=== PATIENT | female | born 1955 | race Caucasian/White ===

== ENCOUNTER 2022-02-12 15:17 | Outpatient (REF) | payer OTHER, MEDICARE, SELFPAY ==
--- NOTE | ~2022-02-12 | XR_ITS ---
EXAMINATION: XR HIP, LEFT CLINICAL INFORMATION: Assess OA. Pain COMPARISON: None TECHNIQUE: Two views of the left hip. FINDINGS: Bones and soft tissues are normal. No fracture. Alignment is anatomic. Hip joint space is maintained. XR/XR hip LT min 2V IMPRESSION: Unremarkable left hip.
[2022-02-12 15:45] LABS: MANUAL DIFF FLAG NO
[2022-02-12 16:49] LABS: Basophils Percent Auto 0.7 % (0-2); Eosinophils Absolute Auto 0.3 X10*3/uL (0.0-0.4); Eosinophils Percent Auto 5.5 % (0-4); Hematocrit 43.4 % (37.0-47.0); Hemoglobin 14.1 g/dl (12.0-16.0); Imm Gran Abs Auto 0.01 X10*3/uL (0.00-0.03); Imm Gran Pct Auto 0.2 % (0.0-0.4); Lymphocytes Absolute Auto 2.3 X10*3/uL (1.2-4.9); Lymphocytes Percent Auto 39.3 % (20-40); Mean Corpuscular HGB Conc 32.5 g/dl (31.0-35.0); Mean Corpuscular Hemoglobin 29.5 pg (27.0-33.0); Mean Corpuscular Volume 90.8 fL (80.0-98.0); Mean Platelet Volume 11.1 fL (9.4-12.3); Monocytes Absolute Auto 0.5 X10*3/uL (0.1-1.2); Neutrophils Absolute Auto 2.7 x10*3/uL (2.0-8.3); Neutrophils Percent Auto 46.3 % (45-73); Platelet Count 227 X10*3/uL (160-400); Red Blood Count 4.78 X10*6/uL (4.20-5.50); Red Cell Distribution Width 14.5 % (11.0-16.0); White Blood Count 5.8 X10*3/uL (4.8-10.8)
[2022-02-12 17:07] LABS: Anion Gap 15 (12-20); Blood Urea Nitrogen 13 mg/dL (9-16); Calcium 9.6 mg/dL (8.4-10.2); Carbon Dioxide 26 mmol/L (22-29); Chloride 103 mmol/L (96-108); Cholesterol 207 mg/dL; Estimated Glomerular Filt Rate > 60; Glucose Random 85 mg/dL (60-115); Potassium 4.2 mmol/L (3.3-5.1); Sodium 140 mmol/L (135-145)
== END 2022-02-12 15:18 | disposition home or self-care (01) ==
LOC: HO.XRAY 15:17
PROVIDERS: PCP Internal Medicine; Visit Provider Internal Medicine
DX: M25.552 Pain in left hip (principal); Z86.010 Personal history of colon polyps
CPT/HCPCS: 36415; 73502; 80048; 82465; 85025

== ENCOUNTER 2022-03-13 07:50 | Outpatient (REF) | payer MEDICARE, OTHER, SELFPAY ==
--- NOTE | ~2022-03-13 | MM_ITS ---
EXAMINATION: MM SCREENING DIGITAL BREAST TOMOSYNTHESIS, BILATERAL CLINICAL INFORMATION: Screening. Asymptomatic. The lifetime risk of breast cancer based on the Tyrer-Cuzick Model is 4%. COMPARISON: Mammography: 02/16/2013, 06/14/2009, 12/05/2006 TECHNIQUE: Digital breast tomosynthesis is performed in both the craniocaudal and mediolateral oblique views along with computer-aided detection (CAD). Synthesized 2D images are generated from the tomosynthesis. FINDINGS: There are scattered areas of fibroglandular density (ACR BI-RADS breast composition Category b). The left breast shows no interval mass or architectural abnormality. Neither breast shows abnormal calcifications. The bilateral axilla are unremarkable. Right MLO view has 3 mm circumscribed nodule posterior 4:00 position close to skin, likely beyond field of view on prior exams. Finding not seen on CC projection. This could be small cyst or possibly a dermal lesion. Patient will be recalled for additional imaging. MM/MM tomosynthesis screening BI IMPRESSION: Right: Circumscribed nodular asymmetry limited to MLO view, posterior 4:00 position. Left: No mammographic evidence of malignancy. ASSESSMENT: BI-RADS 0: Incomplete - Need Additional Imaging Evaluation RECOMMENDATION: 1. Assess for dermal lesion and obtain images with skin marker if applicable. Otherwise right cleavage view. 2. Targeted ultrasound if warranted after review of the additional views. 3. Radiology department staff will contact the patient for additional imaging. This patient's information was entered into a reminder system with a target due date for their next mammogram.
--- NOTE | ~2022-03-13 | MM_ITS ---
EXAMINATION: BONE DENSITOMETRY CLINICAL INDICATION: Menopause. COMPARISON: Baseline BD dated 12/05/2006. TECHNIQUE: Using a [employer] DXA System (software version: 13.1) manufactured by [employer], dual-energy x-ray absorptiometry was performed of the lumbar spine and left hip. The images are of good technical quality. Summary results are attached. FINDINGS: AP SPINE L1-L4: Current: BMD 0.957 g/cm2, Z-score 0.1, T-score -1.9, osteopenia, 10.1% decrease from baseline (<5% change is not significant). Baseline: BMD 1.065 g/cm2. LEFT FEMUR, NECK: Current: BMD 0.815 g/cm2, Z-score 0.1, T-score -1.6, osteopenia. Baseline: BMD 0.878 g/cm2. LEFT FEMUR, TOTAL: Current: BMD 0.902 g/cm2, Z-score 0.7, T-score -0.8, normal, 9.3% decrease from baseline (<5% change is not significant). Baseline: BMD 0.995 g/cm2. IDENTIFIED RISK FACTORS: Menopause, left oophorectomy. HISTORY OF FRACTURE: None listed. MEDICATIONS: None listed. MM/XR DEXA axial skeleton IMPRESSION: 1. DIAGNOSIS: Osteopenia based on the lowest T-score value of -1.9 in the lumbar spine applying World Health Organization criteria. 2. 10-YEAR FRACTURE RISK PREDICTION, FRAX: Major osteoporotic fracture (clinical spine, forearm, hip or shoulder) 8.6%. Hip fracture 1.2%. 3. Treatment Recommendations: NOF guidelines recommend consideration for treatment in postmenopausal women and men age 50 and older presenting with the following: -A hip or vertebral (clinical or morphometric) fracture. -T-score less than or equal to -2.5 at the femoral neck or spine after appropriate evaluation to exclude secondary causes. -Low bone mass at the hip or spine and a 10-year fracture probability by FRAX of greater than or equal to 3% for hip fracture or greater than or equal to 20% for major osteoporotic fracture based on the [place] adapted WHO algorithm. 4. Other Recommendations: All treatment decisions require clinical judgment and consideration of individual patient factors, including patient preferences, comorbidities, previous drug use, risk factors not captured in the FRAX model (e.g. frailty, falls, vitamin D deficiency, increased bone turnover, interval significant decline in bone density) and possible under or overestimation of fracture risk by FRAX. Additional medical evaluation for secondary cause of low bone mineral density may be appropriate. FUTURE SCAN RECOMMENDATION: People with diagnosed cases of osteoporosis or at high risk for fracture should have regular bone mineral density tests. For patients eligible for Medicare, routine testing is allowed once every 2 years. The testing frequency can be increased to one year for patients who have rapidly progressing disease, those who are receiving or discontinuing medical therapy to restore bone mass, or have additional risk factors.
== END 2022-03-13 07:51 | disposition home or self-care (01) ==
LOC: HO.MAMMO 07:50
PROVIDERS: Visit Provider Internal Medicine
DX: Z12.31 Encounter for screening mammogram for malignant neoplasm of breast (principal); Z13.820 Encounter for screening for osteoporosis; Z78.0 Asymptomatic menopausal state; M85.80 Other specified disorders of bone density and structure, unspecified site
CPT/HCPCS: 77063; 77067; 77080

== ENCOUNTER 2022-03-22 14:09 | Outpatient (REF) | payer MEDICARE, OTHER, SELFPAY ==
--- NOTE | ~2022-03-22 | MM_ITS ---
EXAMINATION: MM DIAGNOSTIC DIGITAL MAMMOGRAPHY, RIGHT CLINICAL INFORMATION: Small circumscribed nodule posterior 4:00 right breast on screening MLO view. COMPARISON: Mammography: 03/13/2022, 02/16/2013. TECHNIQUE: Digital mammography is performed in the following views: Right CC and right MLO views with dermal marker. FINDINGS: There are scattered areas of fibroglandular density (ACR BI-RADS breast composition Category b). The finding on recent screening mammography corresponds to a small skin tag marked with the skin marker on current images. The remainder of the breast is unremarkable. Results are discussed with the patient at time of visit. MM/MM added views RT IMPRESSION: Incidental skin tag posterior medial right breast corresponding to finding on recent screening mammography. ASSESSMENT: BI-RADS 2: Benign RECOMMENDATION: Routine annual mammography screening. This patient's information was entered into a reminder system with a target due date for their next mammogram.
== END 2022-03-22 14:10 | disposition home or self-care (01) ==
LOC: HO.MAMMO 14:09
PROVIDERS: Visit Provider Internal Medicine
DX: N63.14 Unspecified lump in the right breast, lower inner quadrant (principal)
CPT/HCPCS: 77065

== ENCOUNTER 2022-11-21 06:17 | Day surgery (SDC) | payer MEDICARE, OTHER, SELFPAY ==
[2022-11-21 06:25] VITALS: BMI 21.4
[2022-11-21 06:38] VITALS: BP 139/77; PULSE 87; RESP 16; TEMP 36.7; O2SAT 98
[2022-11-21] MEDS: Lactated Ringers 1,000 ML 100 ML IVCONT (06:49)
--- NOTE | 2022-11-21 07:23 | HO.ANESPROP2 ---
[facility] Past Medical History Medical History (Updated 11/20/22 @ 10:21 by Megan Nagy RN) HX: benign breast biopsy Hyperplastic polyp of intestine Tubular adenoma Family History Family history of problems with anesthesia: No Surgical History Surgical History (Updated 11/21/22 @ 06:24 by Justyna Jackson RN) H/O section H/O colonoscopy History of biopsy History of removal of ovarian cyst History of Problems with Anesthesia: No Social History Social History Patient Tobacco Use Status: Former Tobacco user Use of substances other than those prescribed or required for medical reasons: No Are you DNR?: No Advance Directives: No Advance Directives Information Provided: Yes Meds Allergies Allergy/AdvReac Type Severity Reaction Status Date / Time No Known Allergies Allergy Verified 11/21/22 06:24 Active Medications: Current Medications Lactated Ringer's (Lr) 1,000 mls @ 100 mls/hr IVCONT .Q10H [facility] Last Admin: 11/21/22 06:49 Dose: 100 mls/hr Sodium Biphosphate/Sodium Phosphate (Sodium Phosphate,Leon-Dibasic 133 Ml Enema) 133 ml MS ONCE PRN PRN Reason: Poor Colonoscopy Prep Results Home Medications Medication Instructions Recorded Confirmed Last Taken Type No Known Home Meds 11/20/22 11/20/22 Unknown History Exam Exam Date and Time: November 21, 2022 0723 Height,Weight and Vital Signs: Height 5 ft 4 in Weight 56.699 kg Last Vital Signs Temp 98.0 F 11/21/22 06:38 Pulse 87 11/21/22 06:38 Resp 16 11/21/22 06:38 BP 139/77 11/21/22 06:38 Pulse Ox 98 11/21/22 06:38 O2 Del Method 11/21/22 06:38 Airway Mallampati Class: II TM Dist: >3cm (Large bilateral torsi upper palatte) Neck ROM: Full Heart: RR Lungs: CTA Assessment and Plan Assessment Anesthesia Assessment: Anesthesia Plan Discussed and Chart Reviewed Final Anesthetic Review Family History of Problems with Anesthesia: No History of Problems with Anesthesia: No NPO: No ASA Class: I Final Preanesthetic Review: No Changes in Pt Med Stat, Meds/Allgs Chart Reviewed, Consent Obtained/Reviewed and Anes Risks/Benef Reviewed Patient Risk: Low Procedure Risk: Low Anesthetic Plan Anesthetic Plan: MAC: Disposition: Standard PACU
[2022-11-21 08:26] VITALS: BP 124/65; PULSE 85; RESP 16; TEMP 36.5; O2SAT 99
--- NOTE | 2022-11-21 08:33 | PM.OP ---
Brief Operative Note Date of Service: 11/21/22 Pre-op diagnosis: Screening Post-op diagnosis: other (Polyp around and in appendiceal orifice) Procedure: Colonoscopy to the cecum and TI with biopsies Surgeon: Cole Larkin Anesthesia: MAC Was an [employer] Salesperson used for this Procedure?: No Estimated blood loss (mL): 2.0 Pathology: other (A. Biopsies from polypoid lesion around and in appendiceal orifice) Condition: stable Disposition: PACU
[2022-11-21 08:41] VITALS: BP 132/76; PULSE 69; RESP 16; O2SAT 99
--- NOTE | 2022-11-21 08:50 | OP_ITS ---
SURGEON: Cole Larkin MD INDICATIONS: The patient presents for evaluation of colorectal cancer screening and personal history of a tubular adenoma of the colon. Full consent was obtained from her for this, including risks of bleeding and perforation. PREOPERATIVE DIAGNOSIS: POSTOPERATIVE DIAGNOSIS: Colorectal cancer screening and personal history of a tubular adenoma of the colon, polypoid lesion around the appendiceal orifice, diverticulosis, and small internal hemorrhoids. PROCEDURE PERFORMED: Colonoscopy to the cecum and terminal ileum with biopsies. ESTIMATED BLOOD LOSS: COMPLICATIONS: ANESTHESIA: Medication used, monitored anesthesia care. ASSISTANTS: SPECIMENS: PREOPERATIVE DIAGNOSES: Colorectal cancer screening and personal history of tubular adenoma of the colon. DESCRIPTION OF PROCEDURE: The patient was placed in the left lateral decubitus position. The digital rectal exam revealed no abnormalities. The Olympus video pediatric colonoscope was entered into the rectum and advanced easily to the cecum. Once in the cecum, I did identify cecal pouch with appendiceal orifice. The appendiceal orifice was notable for what appeared to be an almost circumferential area of raised adenomatous-appearing tissue around the orifice with some similar-type tissue extending into the orifice itself. The remainder of the cecum appeared normal. The ileocecal valve appeared normal. The terminal ileum was cannulated and appeared normal. The scope was withdrawn back in the colon. The appendiceal orifice was carefully inspected. Portions of the raised adenomatous-appearing polyoid tissue could have been removed by snare polypectomy. However, given the appearance of this tissue around the orifice and what appears to be some tissue extending into the orifice, I opted not to try to remove the lesion and simply obtain multiple biopsies from it. I felt trying to remove the lesion would not be complete and could be an increased risk for perforation in this area. The scope was then slowly withdrawn assessing all mucosal surfaces carefully. Preparation was excellent. I did not visualize any other polyps, colitis, or angiodysplasia. There was a mild amount of sigmoid diverticulosis. In the rectum, the scope was retroflexed visualizing small internal hemorrhoids, but no other pathology. The rectal mucosa appeared normal. The scope was straightened and withdrawn from the patient. She tolerated the procedure well and was returned to the recovery area in stable condition. IMPRESSION: 1. Polypoid-appearing lesion around and in the appendiceal orifice, status post biopsy. 2. Mild diverticulosis. 3. Small internal hemorrhoids. PLAN: The results of the biopsies will be checked. I suspect this will return as adenomatous or serrated-type tissue and she will require surgical consultation to have it removed. She was advised not to use any aspirin and NSAIDs for at least 1 week. I would recommend a repeat colonoscopy in 2-3 years for followup. This has all been discussed with the patient and her today. MD RORY Pham/RADHA / [id number] MTDMartha
[2022-11-21 08:55] VITALS: BP 131/74; PULSE 70; RESP 16; TEMP 36.6; O2SAT 99
== END 2022-11-21 09:17 | disposition home or self-care (01) ==
PROVIDERS: PCP Internal Medicine; Visit Provider Internal Medicine
PROC: 0DJD8ZZ Inspection of Lower Intestinal Tract, Via Natural or Artificial Opening Endoscopic (ICD-10-PCS; CPT 45378; principal; 2022-11-21 07:30)
DX: Z12.11 Encounter for screening for malignant neoplasm of colon (principal); Z86.010 Personal history of colon polyps; D12.1 Benign neoplasm of appendix; K57.30 Diverticulosis of large intestine without perforation or abscess without bleeding; K64.8 Other hemorrhoids; Z87.891 Personal history of nicotine dependence
CPT/HCPCS: 45380; 88305; J2370

== ENCOUNTER → 2022-12-18 10:16 | Outpatient (BNVA) | payer MEDICARE, OTHER, SELFPAY | PROVIDERS: PCP Internal Medicine; Referring Provider Internal Medicine; Visit Provider Surgery | DX: D12.6 Benign neoplasm of colon, unspecified (principal); Z98.890 Other specified postprocedural states | CPT/HCPCS: 99202 ==

== ENCOUNTER 2023-01-09 07:05 | Inpatient (IN) | payer MEDICARE, OTHER, SELFPAY ==
[2022-12-25 14:42] VITALS: BMI 20.9
--- NOTE | 2023-01-03 | ECG_ITS ---
Test Reason : pre-op Blood Pressure : / mmHG Vent. Rate : 074 BPM Atrial Rate : 074 BPM P-R Int : 130 ms QRS Dur : 088 ms QT Int : 370 ms P-R-T Axes : 030 004 016 degrees QTc Int : 410 ms Normal sinus rhythm Normal ECG No previous ECGs available Referred By: Aguilar Mullins Electronically Signed By:DARYN CHEEK MD
[2023-01-03 14:05] LABS: MANUAL DIFF FLAG NO
[2023-01-03 14:39] LABS: Basophils Absolute Auto 0.1 X10*3/uL (0.0-0.2); Basophils Percent Auto 0.9 % (0-2); Eosinophils Absolute Auto 0.3 X10*3/uL (0.0-0.4); Eosinophils Percent Auto 5.5 % (0-4); Hemoglobin 13.6 g/dl (12.0-16.0); Imm Gran Abs Auto 0.01 X10*3/uL (0.00-0.03); Imm Gran Pct Auto 0.2 % (0.0-0.4); Lymphocytes Absolute Auto 1.7 X10*3/uL (1.2-4.9); Lymphocytes Percent Auto 29.2 % (20-40); Mean Corpuscular HGB Conc 33.2 g/dl (31.0-35.0); Mean Corpuscular Hemoglobin 30.4 pg (27.0-33.0); Mean Corpuscular Volume 91.7 fL (80.0-98.0); Mean Platelet Volume 10.7 fL (9.4-12.3); Monocytes Absolute Auto 0.6 X10*3/uL (0.1-1.2); Monocytes Percent Auto 9.4 % (2-11); Neutrophils Absolute Auto 3.2 x10*3/uL (2.0-8.3); Neutrophils Percent Auto 54.8 % (45-73); Platelet Count 233 X10*3/uL (160-400); Red Blood Count 4.47 X10*6/uL (4.20-5.50); Red Cell Distribution Width 12.8 % (11.0-16.0); White Blood Count 5.8 X10*3/uL (4.8-10.8)
[2023-01-03 15:03] LABS: Anion Gap 15 (12-20); Blood Urea Nitrogen 19 mg/dL (9-16); Calcium 9.2 mg/dL (8.4-10.2); Carbon Dioxide 26 mmol/L (22-29); Chloride 104 mmol/L (96-108); Creatinine Clr Calc Pharmacy 58.9; Estimated Glomerular Filt Rate > 60; Glucose Random 90 mg/dL (60-115); Potassium 3.9 mmol/L (3.3-5.1); Sodium 141 mmol/L (135-145)
[2023-01-03 15:05] LABS: Alanine Aminotransferase 11 U/L (0-31); Albumin Level 4.4 g/dL (3.5-5.0); Alkaline Phosphatase 66 U/L (39-117); Anion Gap 14 (12-20); Aspartate Amino Transferase 18 U/L (5-31); Bilirubin Total 0.7 mg/dL (0.0-1.0); Blood Urea Nitrogen 19 mg/dL (9-16); Calcium 9.2 mg/dL (8.4-10.2); Carbon Dioxide 27 mmol/L (22-29); Chloride 104 mmol/L (96-108); Creatinine Clr Calc Pharmacy 58.9; Estimated Glomerular Filt Rate > 60; Glucose Random 90 mg/dL (60-115); Potassium 3.9 mmol/L (3.3-5.1); Sodium 141 mmol/L (135-145)
[2023-01-09] VITALS (17 sets, daily range): BP systolic 115–159; BP diastolic 56–78; PULSE 70–95; RESP 12–20; TEMP 36.2–37.1; O2SAT 97–100
[2023-01-09] MEDS: Lactated Ringers 1,000 ML 100 ML IVCONT (08:11)
[2023-01-09 08:12] LABS: Influenza A PCR NEGATIVE (Negative); Influenza B PCR NEGATIVE (Negative); Resp Syncy Virus RNA Qual PCR NEGATIVE (Negative); SARS COV2 PCR INHOUSE NEGATIVE (Negative)
--- NOTE | 2023-01-09 08:32 | P.HPSUR_ITS ---
Pre-Procedural Eval Section A Date of Service: 01/09/23 Changes since office visit: Yes Patient answered all questions; No Cold of Flu in the past 2 weeks, No New Medical Problems and No Changes in Medication The History & Physical has been completed within 30 days and I have reviewed it.: No Section B Chief Complaint: Sessile Serrated Polyp Appendix Details of Present Illness: Patient denies any current ongoing abdominal s ymptoms feels well. She tolerated the prep antibiotics well. Relevant Family History (Specify if Yes): No Relevant Social History: None Present Medications: see Short Stay Collaborative assessment Medical History: No relevant PMH History of Previous Operations: Relevant previous surgery/procedure and date(s) ( Caesarean section) Allergies: Allergies Allergy/AdvReac Type Severity Reaction Status Date / Time No Known Allergies Allergy Verified 12/25/22 14:41 Review of Systems Sugical H&P ROS: Negative: Constitution, Cardiovascular, Respiratory, Neurolo gical, Psychiatric, Hem-Onc, Allergic/Immunologic, Gastrointestinal, Genitourinary, Musculoskeletal, Integumentary, Endocrine and Eyes/Ears/Nose/Throat Exam Surgical H&P Exam: Normal: HEENT, Normal: Heart, Normal: Lungs, Normal: Extremities, Normal: Abdomen, Normal: Skin and Normal: Neurological Plan Diagnosis/Plan: Unchanged I have reviewed the history and physical and performed a pertinent physical examination on my patient. No changes have occurred unless specified. Time Spent With Patient Time: Total time managing care of this patient today ___10_ minutes.
--- NOTE | 2023-01-09 10:16 | P.CONAN_ITS ---
[facility] Active Problems Active Problems: All Active Problems (Updated 12/25/22 @ 14:41 by Deanna Magallanes, RN) Sessile serrated polyp of colon (Acute) Past Medical History Medical History (Updated 12/25/22 @ 14:41 by Deanna Magallanes RN) HX: benign breast biopsy Hyperplastic polyp of intestine Low back pain Personal history of COVID-19 Tubular adenoma Family History Family History Maternal Grandmother Breast cancer Family history of problems with anesthesia: No Surgical History Surgical History (Updated 12/25/22 @ 14:59 by Deanna Magallanes RN) H/O section H/O colonoscopy History of biopsy History of removal of ovarian cyst History of Problems with Anesthesia: No Social History Social History Are you a primary rn managed care to a significant other at home: No Do you presently have visiting nurse or other home services: No Patient Tobacco Use Status: Former Tobacco user Quit Date: 1974 Have you been hit, kicked, punched, or otherwise hurt by someone within the past year? If so, by whom?: No Are you DNR?: No Advance Directives: No Advance Directives Information Provided: Yes Advance Directives on File: No Recently lost weight without trying: No Nutrition Risks: No Nutritional Risk Meds Allergies Allergy/AdvReac Type Severity Reaction Status Date / Time No Known Allergies Allergy Verified 12/25/22 14:41 Active Medications: Current Medications Lactated Ringer's (Lr) 1,000 mls @ 100 mls/hr IVCONT .Q10H [facility] Last Admin: 01/09/23 08:11 Dose: 100 mls/hr Pharmacy Consult (Consult Rx Perform Med Rec) 1 each MISCELLANE ONCE PRN PRN Reason: Consult order Exam Exam Date and Time: January 09, 2023 1016 Height,Weight and Vital Signs: Height 5 ft 4.5 in Weight 56.245 kg Last Vital Signs Temp 97.1 F 01/09/23 07:17 Pulse 95 01/09/23 07:17 Resp 18 01/09/23 07:17 BP 115/66 01/09/23 07:17 Pulse Ox 100 01/09/23 07:17 O2 Del Method 01/09/23 07:17 Pertinent Lab Results Pertinent Lab Results: Laboratory Tests 01/03/23 01/03/23 01/03/23 13:59 14:03 14:03 WBC 5.8 RBC 4.47 Hgb 13.6 Hct 41.0 MCV 91.7 MCH 30.4 MCHC 33.2 RDW 12.8 Plt Count 233 MPV 10.7 Immature Gran % (Auto) 0.2 Neut % (Auto) 54.8 Lymph % (Auto) 29.2 Hitchcock % (Auto) 9.4 Eos % (Auto) 5.5 H Baso % (Auto) 0.9 Lymph # (Auto) 1.7 Hitchcock # (Auto) 0.6 Eos # (Auto) 0.3 Baso # (Auto) 0.1 Abs Immat Gran (auto) 0.01 Absolute Neuts (auto) 3.2 Absolute Nucleated RBC 0.000 Nucleated RBC % (auto) 0.0 Sodium 141 Potassium 3.9 Chloride 104 Carbon Dioxide 26 Anion Gap 15 BUN 19 H Creatinine 0.80 Estim Creat Clear Calc 58.9 Estimated GFR > 60 Random Glucose 90 Calcium 9.2 Total Bilirubin AST ALT Alkaline Phosphatase Total Protein Albumin Influenza Type A (PCR) Influenza Type B (PCR) RSV RNA Qual (PCR) SARS-CoV-2 RNA (RT-PCR) Blood Type B Positive Antibody Screen NEGATIVE 01/03/23 01/09/23 14:03 07:12 WBC RBC Hgb Hct MCV MCH MCHC RDW Plt Count MPV Immature Gran % (Auto) Neut % (Auto) Lymph % (Auto) Hitchcock % (Auto) Eos % (Auto) Baso % (Auto) Lymph # (Auto) Hitchcock # (Auto) Eos # (Auto) Baso # (Auto) Abs Immat Gran (auto) Absolute Neuts (auto) Absolute Nucleated RBC Nucleated RBC % (auto) Sodium 141 Potassium 3.9 Chloride 104 Carbon Dioxide 27 Anion Gap 14 BUN 19 H Creatinine 0.80 Estim Creat Clear Calc 58.9 Estimated GFR > 60 Random Glucose 90 Calcium 9.2 Total Bilirubin 0.7 AST 18 ALT 11 Alkaline Phosphatase 66 Total Protein 7.0 Albumin 4.4 Influenza Type A (PCR) NEGATIVE Influenza Type B (PCR) NEGATIVE RSV RNA Qual (PCR) NEGATIVE SARS-CoV-2 RNA (RT-PCR) NEGATIVE Blood Type Antibody Screen Airway Mallampati Class: I TM Dist: >3cm Neck ROM: Full Heart: rr Lungs: cta Assessment and Plan Assessment Anesthesia Assessment: Anesthesia Plan Discussed and Chart Reviewed Final Anesthetic Review Family History of Problems with Anesthesia: No History of Problems with Anesthesia: No NPO: Yes ASA Class: II Final Preanesthetic Review: No Changes in Pt Med Stat, Meds/Allgs Chart Reviewed, Consent Obtained/Reviewed and Anes Risks/Benef Reviewed Patient Risk: Low Procedure Risk: Intermediate Anesthetic Plan Anesthetic Plan: GA Disposition: Inp. Admit - Standard Bed
--- NOTE | 2023-01-09 10:42 | PHA.MEDREC ---
Pharmacy Consult ? Medication Reconciliation Pharmacy has completed the medication reconciliation. Pharmacy reviewed med rec.
--- NOTE | 2023-01-09 11:27 | P.OP_ITS ---
Operative Note Operative Note Date of Service: 01/09/23 Narrative: Preoperative diagnosis: sessile serrated polyp of appendix orifice Postoperative diagnosis: same Procedure: laparoscopic right hemicolectomy Surgeon: Bryan Nails MD Urgent Care Physician Assistant: Danielle Goodrich PA-C Anesthesia: general endotracheal Indications for procedure: 67-year-old female patient presenting with a sessile serrated polyp identified on routine colonoscopy at the orifice of the appendix. Lesion was incompletely removed and resection recommended. Patient is previously healthy with no GI symptoms. Operative findings: Normal appearing terminal ileum, appendix, and colon. Liver with normal texture and no evidence of palpable tumor. Peritoneal surfaces were smooth without tumor. Specimen: Right colon Estimated blood loss: 10 mL Complications: none Procedure details: patient was brought to the OR placed in a supine position with both arms to the side. After administering general anesthesia the patient's abdomen was prepped with ChloraPrep and draped in a sterile fashion. A surgical time-out was called the consent confirmed. Patient received preoperative antibiotics and Venodyne boots were in place. A Peñaloza catheter was placed and orogastric tube placed. A incision was then made just above the umbilicus. A Veress needle was inserted while elevating the abdominal cavity with towel clips. After a positive drop test the abdomen was insufflated to a pressure of 15 mmHg. A 5 mm trocar was then placed under direct vision. A 5 mm camera and, 30 degree was then inserted in the abdomen explored. A 2nd 5 mm trocar was then placed in the lower midline and a 12 mm trocar placed in the upper abdomen in the midline. A 2nd 12 mm trocar was placed in the right lower quadrant. Patient was then rotated to the left proximally 15 degrees. The terminal ileum and appendix were identified in the right quadrant. The mesoappendix was grasped and the appendix and cecum rotated medially. Peritoneal attachments to the lateral sidewall were then taken down using the LigaSure dissector. The terminal ileum was also mobilized from its attachments in the pelvis. Right colon was mobilized along the white line of Toldt. Approximately 15 cm proximal to the terminal ileum an area of mesentery was taken down using LigaSure on the ileum. An Endo-FLORINA with a purple reload was then used to divide the ileum. LigaSure was then used to divide mesentery below the terminal ileum heading towards the cecum. Ileal colic pedicle was then identified. This was dissected using the LigaSure and the vessel ligated using a vascular Stapler. Good hemostasis was identified following stapler placement. mesentery was further divided using the LigaSure up to the proximal distal right colon proximal transverse colon. At this point a small incision was made in a periumbilical location measuring approximately 6 cm. This was carried out through subcutaneous tissue and And linea alba. The peritoneum was then entered. Terminal ileum and cecum were then brought up through the incisio n easily. An area of distal resection was then identified in the distal right colon. Mesentery was divided using the LigaSure. A FLORINA reload was then used to divide the colon at this location. The specimen was passed off the table and sent to pathology for further examination. Colon and distal small bowel were then approximated using interrupted 3-0 Surgilon sutures. A functional end-to-end anastomosis was then performed by creating a enterotomy in the small bowel and colon and firing a FLORINA 60 stapler in a [id number] fashion. A wide anastomosis was performed. Enterotomies were then closed using a TA stapler. This staple line was then reinforced using interrupted 3-0 Surgilon sutures in Lembert fashion. The crotch of the incision was also closed using a 3-0 Surgilon suture. The mesenteric defect was then reapproximated using interrupted 3-0 Surgilon sutures. The anastomosis was returned to the abdominal cavity. The camera was then used to re-explore the abdomen. No bleeding could be identified and the bowel was seen to lie and relaxed fashion. The pneumoperitoneum was then evacuated and all trocars removed. The abdomen was then irrigated and suctioned dry. Irrisept was used in irrigation. This was followed by a L of saline solution. The midline incision was closed using a 0 Maxon suture. All 12 mm incisions were closed using [id number] Polysorb suture in fascia. Skin was closed in all incisions using a subcuticular 4-0 Polysorb suture. Steri-Strips, 2 x 2 gauze and Tegaderm were then applied. The patient tolerated the procedure well. A tap block was performed anesthesia following the procedure for postop pain relief. Sponge, instrument, needle counts reported as correct. The patient was transferred to PACU in stable condition. Colon Resection Tumor location: Right colon Extent of lymphovascular resection Right colon (cecum and ascending colon): Terminal ileum, cecum, right colon General Surg. - Synoptic Notes Colon Resection Tumor location: Right colon Extent of Lymphovascular Resection: Right colon (cecum and ascending colon): Terminal ileum, cecum, right colon
[2023-01-09] MEDS: HYDROmorphone HCl 0.5 MG/0.5 ML SYRINGE 0.25 MG IVPUSH ×3 (12:15→14:34)
[2023-01-09] MEDS: Dextrose 5 % and Lactated Ring 1,000 ML 100 ML IVCONT ×2 (12:44→21:01)
[2023-01-09] MEDS: Acetaminophen 1,000 MG/100 ML PIGGYBACK 400 MG IV ×2 (12:45→20:54)
[2023-01-09] MEDS: Heparin Sodium,Porcine 5,000 UNIT/ML VIAL 5000 UNIT SUBCUT (15:57)
[2023-01-09] MEDS: HYDROmorphone HCl 0.5 MG/0.5 ML SYRINGE IVPUSH ×2 (17:42→22:52)
[2023-01-10] MEDS: Acetaminophen 1,000 MG/100 ML PIGGYBACK 400 MG IV ×3 (01:55→13:06)
[2023-01-10 03:55] VITALS: BP 121/58; PULSE 77; RESP 18; TEMP 36.4; O2SAT 98
[2023-01-10] MEDS: Heparin Sodium,Porcine 5,000 UNIT/ML VIAL 5000 UNIT SUBCUT ×2 (04:19→18:00)
[2023-01-10 06:28] LABS: MANUAL DIFF FLAG NO
[2023-01-10 06:34] LABS: Basophils Percent Auto 0.3 % (0-2); Eosinophils Percent Auto 0.2 % (0-4); Hematocrit 37.3 % (37.0-47.0); Hemoglobin 12.8 g/dl (12.0-16.0); Imm Gran Abs Auto 0.04 X10*3/uL (0.00-0.03); Imm Gran Pct Auto 0.4 % (0.0-0.4); Lymphocytes Absolute Auto 1.5 X10*3/uL (1.2-4.9); Lymphocytes Percent Auto 15.6 % (20-40); Mean Corpuscular HGB Conc 34.3 g/dl (31.0-35.0); Mean Corpuscular Volume 93.3 fL (80.0-98.0); Mean Platelet Volume 11.2 fL (9.4-12.3); Monocytes Absolute Auto 0.6 X10*3/uL (0.1-1.2); Monocytes Percent Auto 5.9 % (2-11); Neutrophils Absolute Auto 7.6 x10*3/uL (2.0-8.3); Neutrophils Percent Auto 77.6 % (45-73); Platelet Count 192 X10*3/uL (160-400); Red Cell Distribution Width 12.6 % (11.0-16.0); White Blood Count 9.8 X10*3/uL (4.8-10.8)
[2023-01-10] MEDS: Dextrose 5 % and Lactated Ring 1,000 ML 100 ML IVCONT ×2 (07:08→18:00)
[2023-01-10 07:53] VITALS: BP 138/67; PULSE 78; RESP 18; TEMP 36.7; O2SAT 99
--- NOTE | 2023-01-10 07:54 | PM.PNGS ---
Subjective Subjective Date of Service: 01/10/23 Interval history: Patient complains of incisional pain, has not been out of bed and is not doing incentive spirometry as requested. She is currently receiving IV Tylenol which does seem to help. Physical Exam Vital Signs: Vital Signs: Last Vital Signs Temp 98.0 F 01/10/23 07:53 Pulse 78 01/10/23 07:53 Resp 18 01/10/23 07:53 BP 138/67 01/10/23 07:53 Pulse Ox 99 01/10/23 07:53 O2 Del Method 01/10/23 07:53 O2 Flow Rate 2 01/10/23 07:53 BMI result Body Mass Index 20.9 Const: General: healthy appearing and no acute distress Nutritional Appearance: well nourished Orientation/consciousness: patient oriented x3 Limitations: no limitations Resp: Effort & Inspection: normal respiratory effort, no audible wheezes and no cough GI: Other: Trocar incisions are clean, dry, and intact without redness or discharge. No abdominal distention. Skin: Other: Warm, dry, no rash Neuro: General: patient oriented x3 Extrem: Other: No peripheral edema Objective Data Active Medications Heparin Sodium (Porcine) (Heparin Sodium,Porcine 5,000 Unit/Ml Vial) 5,000 unit SUBCUT Q12H [facility] Last Admin: 01/10/23 04:19 Dose: 5,000 unit Documented By: YAO Hydromorphone HCl (Hydromorphone Hcl 0.5 Mg/0.5 Ml Syringe) 0.5 mg IVPUSH Q3H PRN; Protocol PRN Reason: Pain, Severe (Pain Scale 7-10) Last Admin: 01/09/23 22:52 Dose: 0.5 mg Documented By: BRAD Dextrose/Lactated Ringer's (D5lr) 1,000 mls @ 100 mls/hr IVCONT .Q10H [facility] Last Admin: 01/10/23 07:08 Dose: 100 mls/hr Documented By: YAO Acetaminophen (Ofirmev) 1,000 mg in 100 mls @ 400 mls/hr IV Q6H [facility] Stop: 01/10/23 13:14 Last Admin: 01/10/23 07:45 Dose: 400 mls/hr Documented By: MICHAEL Ondansetron HCl (Ondansetron Hcl 4 Mg/2 Ml Vial) 4 mg IVPUSH QID PRN PRN Reason: Nausea Pharmacy Consult (Consult Rx Perform Med Rec) 1 each MISCELLANE ONCE PRN PRN Reason: Consult order Sodium Chloride (0.9 % Sodium Chloride Flush 3 Ml Syringe) 3 ml IVFLUSH QSHIFT [facility] Last Admin: 01/10/23 07:46 Dose: Not Given Documented By: MICHAEL Non-Admin Reason: IV Running Zolpidem Tartrate (Zolpidem Tartrate 5 Mg Tablet) 5 mg PO BEDTIME PRN PRN Reason: Insomnia Labs 01/10/23 05:56 01/03/23 14:03 Labs: Laboratory Results - last 24 hr 01/09/23 01/10/23 07:12 05:56 MCV 93.3 MCH 32.0 MCHC 34.3 RDW 12.6 Plt Count 192 MPV 11.2 Immature Gran % (Auto) 0.4 Neut % (Auto) 77.6 H Lymph % (Auto) 15.6 L [place] % (Auto) 5.9 Eos % (Auto) 0.2 Baso % (Auto) 0.3 Lymph # (Auto) 1.5 [place] # (Auto) 0.6 Eos # (Auto) 0.0 Baso # (Auto) 0.0 Abs Immat Gran (auto) 0.04 H Absolute Neuts (auto) 7.6 Absolute Nucleated RBC 0.000 Nucleated RBC % (auto) 0.0 Influenza Type A (PCR) NEGATIVE Influenza Type B (PCR) NEGATIVE RSV RNA Qual (PCR) NEGATIVE SARS-CoV-2 RNA (RT-PCR) NEGATIVE Procedures Date of Service Date of Service: 01/10/23 Progress Note: A&P Assessment and plan (1) Sessile serrated polyp of colon: Status: Acute Plan Pod 1 following laparoscopic right colectomy for sessile serrated polyp of the cecum/appendix. Patient is hemodynamically stable with stable blood count. Patient encouraged to ambulate today, incentive spirometry Q 1 hours. Peñ[place] catheter will be removed. Will continue with clear liquid diet. Possible advancing later today if tolerated. Time Spent With Patient Time: Total time managing care of this patient today ____ minutes. Quality Stroke Does the patient have a stroke diagnosis?: No VTE Prior VTE?: No VTE Risk Level:: Surgical - moderate VTE Device Contraindication: N/A - Device Ordered VTE Drug Contraindication: N/A - Med Ordered
[2023-01-10] MEDS: HYDROmorphone HCl 0.5 MG/0.5 ML SYRINGE IVPUSH ×2 (10:14→17:59)
[2023-01-10] MEDS: ondansetron HCL 4 MG/2 ML VIAL IVPUSH (13:13)
--- NOTE | 2023-01-10 15:26 | HO.POSTANES ---
Post Anesthesia Evaluation Post Anesthesia Evaluation Vital Signs: Vital Signs Temp Pulse Resp BP Pulse Ox O2 Del Method O2 Flow Rate 01/10/23 07:53 98.0 F 78 18 138/67 99 Nasal Cannula 2 01/10/23 03:55 97.5 F 77 18 121/58 L 98 Nasal Cannula 2 Anesthesia: General Endotracheal-GETA Mental Status: Awake Pain Control: Satisfactory (incisional pain) Nausea/Vomiting: Mild Hydration: Adequate Anesthesia-Related Issues: No Anes. Related Issues
[2023-01-10 16:00] VITALS: BP 157/74; PULSE 87; RESP 18; TEMP 36.9; O2SAT 98
--- NOTE | 2023-01-10 16:17 | MHC.CM.PN ---
CM MET WITH PT AND AT BEDSIDE PT LIVES WITH HER , WORKS AND DRIVES PT HAS NO SERVICES AND NO DME PT COMPLETED A HCP TODAY NAMING HER HER AGENT SHE IS COVID VAX WITH [facility] PCP: REED RIVERA IMM DELIVERED DCP: HOME NO SERVICES TO TRANSPORT
[2023-01-10] MEDS: 0.9 % Sodium Chloride Flush 3 ML SYRINGE IVFLUSH (17:59)
[2023-01-10 20:00] VITALS: BP 132/64; PULSE 70; RESP 18; TEMP 36.9; O2SAT 96
[2023-01-11] MEDS: HYDROmorphone HCl 0.5 MG/0.5 ML SYRINGE IVPUSH ×4 (01:48→22:50)
[2023-01-11 04:00] VITALS: BP 133/65; PULSE 90; RESP 16; TEMP 36.2; O2SAT 94
[2023-01-11] MEDS: Dextrose 5 % and Lactated Ring 1,000 ML 100 ML IVCONT (04:11)
[2023-01-11] MEDS: Heparin Sodium,Porcine 5,000 UNIT/ML VIAL 5000 UNIT SUBCUT ×2 (04:16→15:22)
[2023-01-11 08:00] VITALS: BP 124/58; PULSE 81; RESP 18; TEMP 36.3; O2SAT 96
--- NOTE | 2023-01-11 08:41 | PM.PNGS ---
Subjective Subjective Date of Service: 01/11/23 Interval history: Had a lot of nausea yesterday. Resolved this morning and feeling much better. Pain is controlled. OOB and ambulating. Does not think she is passing flatus. Physical Exam Vital Signs: Vital Signs: Last Vital Signs Temp 97.4 F 01/11/23 08:00 Pulse 81 01/11/23 08:00 Resp 18 01/11/23 08:00 BP 124/58 L 01/11/23 08:00 Pulse Ox 96 01/11/23 08:00 O2 Del Method 01/11/23 08:00 O2 Flow Rate 2 01/10/23 07:53 BMI result Body Mass Index 20.9 Const: General: comfortable, no acute distress and alert Orientation/consciousness: patient oriented x3 Resp: Effort & Inspection: normal respiratory effort GI: Inspection: No distended and Yes incision (clean) Palpation (GI): Soft to palpation, Tenderness to palpation present (GI) (mild incisional tenderness), no guarding and not rigid Percussion: Yes normal to percussion Skin: General skin exam: no rashes or lesions noted Neuro: General: patient oriented x3 Objective Data Active Medications Heparin Sodium (Porcine) (Heparin Sodium,Porcine 5,000 Unit/Ml Vial) 5,000 unit SUBCUT Q12H [facility] Last Admin: 01/11/23 04:16 Dose: 5,000 unit Documented By: KENY Hydromorphone HCl (Hydromorphone Hcl 0.5 Mg/0.5 Ml Syringe) 0.5 mg IVPUSH Q3H PRN; Protocol PRN Reason: Pain, Severe (Pain Scale 7-10) Last Admin: 01/11/23 04:28 Dose: 0.5 mg Documented By: KENY Ondansetron HCl (Ondansetron Hcl 4 Mg/2 Ml Vial) 4 mg IVPUSH QID PRN PRN Reason: Nausea Last Admin: 01/10/23 13:13 Dose: 4 mg Documented By: MICHAEL Pharmacy Consult (Consult Rx Perform Med Rec) 1 each MISCELLANE ONCE PRN PRN Reason: Consult order Sodium Chloride (0.9 % Sodium Chloride Flush 3 Ml Syringe) 3 ml IVFLUSH QSHIFT [facility] Last Admin: 01/11/23 03:25 Dose: Not Given Documented By: KENY Non-Admin Reason: IV Running Zolpidem Tartrate (Zolpidem Tartrate 5 Mg Tablet) 5 mg PO BEDTIME PRN PRN Reason: Insomnia Labs 01/10/23 05:56 01/03/23 14:03 Procedures Date of Service Date of Service: 01/11/23 Progress Note: A&P Assessment and plan (1) Sessile serrated polyp of colon: Status: Acute (2) S/P right colectomy: Status: Acute Plan Pod 2 following laparoscopic right colectomy for sessile serrated polyp of the cecum/appendix. She is doing well and improved this morning without nausea and pain well controlled. Abd benign, soft ND, incisions clean. Will reassess later today for advance to solid food. Continue OOB/ambulation. Await return of GI function. Time Spent With Patient Time: Total time managing care of this patient today ____ minutes. Quality Stroke Does the patient have a stroke diagnosis?: No VTE Prior VTE?: No VTE Risk Level:: Surgical - moderate VTE Device Contraindication: N/A - Device Ordered VTE Drug Contraindication: N/A - Med Ordered
[2023-01-11 10:28] VITALS: BP 124/58; PULSE 81; O2SAT 96
[2023-01-11 11:19] VITALS: BP 124/58; PULSE 81; O2SAT 96
[2023-01-11] MEDS: 0.9 % Sodium Chloride Flush 3 ML SYRINGE IVFLUSH (15:23)
[2023-01-11 15:42] VITALS: BP 158/75; PULSE 77; RESP 18; TEMP 37.2; O2SAT 99
[2023-01-11 19:38] VITALS: PULSE 78; RESP 18; TEMP 36.9
[2023-01-11] MEDS: Zolpidem Tartrate 5 MG TABLET PO (22:50)
[2023-01-12] MEDS: 0.9 % Sodium Chloride Flush 3 ML SYRINGE IVFLUSH ×2 (00:07→09:41)
[2023-01-12 03:39] VITALS: BP 132/66; PULSE 69; RESP 16; TEMP 36.6; O2SAT 94
[2023-01-12] MEDS: Heparin Sodium,Porcine 5,000 UNIT/ML VIAL 5000 UNIT SUBCUT (05:07)
[2023-01-12] MEDS: HYDROmorphone HCl 0.5 MG/0.5 ML SYRINGE IVPUSH (05:08)
[2023-01-12 07:56] VITALS: BP 137/76; PULSE 72; RESP 18; TEMP 36.3; O2SAT 95
--- NOTE | 2023-01-12 09:27 | PM.PNGS ---
Subjective Subjective Date of Service: 01/12/23 Interval history: feels well good pain control tolerating diet well good flatus no BM Physical Exam Vital Signs: Vital Signs: Last Vital Signs Temp 97.4 F 01/12/23 07:56 Pulse 72 01/12/23 07:56 Resp 18 01/12/23 07:56 BP 137/76 01/12/23 07:56 Pulse Ox 95 01/12/23 07:56 O2 Del Method 01/12/23 07:56 O2 Flow Rate 2 01/11/23 08:00 BMI result Body Mass Index 20.9 Const: General: comfortable and no acute distress Resp: Effort & Inspection: normal respiratory effort Cardio: Rate: regular rate GI: Other: incisions clean and dry Palpation (GI): Soft to palpation, not firm and no guarding Objective Data Active Medications Heparin Sodium (Porcine) (Heparin Sodium,Porcine 5,000 Unit/Ml Vial) 5,000 unit SUBCUT Q12H [facility] Last Admin: 01/12/23 05:07 Dose: 5,000 unit Documented By: ACE Hydromorphone HCl (Hydromorphone Hcl 0.5 Mg/0.5 Ml Syringe) 0.5 mg IVPUSH Q3H PRN; Protocol PRN Reason: Pain, Severe (Pain Scale 7-10) Last Admin: 01/12/23 05:08 Dose: 0.5 mg Documented By: ACE Ondansetron HCl (Ondansetron Hcl 4 Mg/2 Ml Vial) 4 mg IVPUSH QID PRN PRN Reason: Nausea Last Admin: 01/10/23 13:13 Dose: 4 mg Documented By: MICHAEL Pharmacy Consult (Consult Rx Perform Med Rec) 1 each MISCELLANE ONCE PRN PRN Reason: Consult order Sodium Chloride (0.9 % Sodium Chloride Flush 3 Ml Syringe) 3 ml IVFLUSH QSHIFT [facility] Last Admin: 01/12/23 00:07 Dose: 3 ml Documented By: ACE Zolpidem Tartrate (Zolpidem Tartrate 5 Mg Tablet) 5 mg PO BEDTIME PRN PRN Reason: Insomnia Last Admin: 01/11/23 22:50 Dose: 5 mg Documented By: ACE Labs 01/10/23 05:56 01/03/23 14:03 Procedures Date of Service Date of Service: 01/12/23 Progress Note: A&P Assessment and plan (1) S/P right colectomy: Status: Acute Assessment and Plan: looks well good GI function abd soft no fever she states she is ready to be discharged will reevaluate later, likely discharge in room dc instructions given to pt Time Spent With Patient Time: Total time managing care of this patient today ____ minutes. Quality Stroke Does the patient have a stroke diagnosis?: No VTE Prior VTE?: No VTE Risk Level:: Surgical - moderate VTE Device Contraindication: N/A - Device Ordered VTE Drug Contraindication: N/A - Med Ordered
--- NOTE | 2023-01-12 10:34 | MHC.CM.PN ---
PT WILL DC HOME TODAY WITH NO SERVICES TO TRANSPORT
[2023-01-14 10:14] LABS: SARS COV2 IgG Positive (Negative)
--- NOTE | 2023-01-15 11:05 | PM.DS ---
DS: Providers Provider Date of Service: 01/12/23 Date of admission: 01/09/23 07:05 Date of discharge: 01/12/23 Primary care physician: Ty Newberry MD Attending physician on admission: Bryan Nails Attending physician on discharge: Ty Phillips DS: Diagnosis Discharge Diagnosis (1) S/P right colectomy: Status: Acute DS: Summary Hospital Course Hospital Course: BRIEF HPI AT ADMISSION: 67-year-old female patient presenting with a sessile serrated polyp identified on routine colonoscopy at the orifice of the appendix. Lesion was incompletely removed and resection recommended. Patient is previously healthy with no GI symptoms. She now presents for the procedure. HOSPITAL COURSE: On 01/09/23, a laparoscopic right hemicolectomy was performed by Dr. Nails without complication. The patient tolerated the procedure well and was admitted to the medical/surgical floor following for observation. She had an uncomplicated recovery course. Her bansal was removed on POD #1. She initially had nausea post operatively and therefore she was kept on clears until this improved on POD#2 and she was then advanced to a solid diet. She began passing flatus. On the day of discharge, she felt well with good pain control and tolerating a solid diet. Her abdomen was benign with a clean incision and appropriate post op tenderness. She felt ready for discharge. She was discharged to home on 01/12/23 in stable condition. Status at Discharge Functional status at discharge: independent ambulation Overall status at discharge: patient is progressing back to baseline Time Spent with Patient Time attestation: Total time managing care of this patient today ____ minutes. Discharge coordination time: Less than 30 minutes Quality: Safe Use of Opioids Does Pt have an Active Cancer Diagnosis on the Problem List?: No Quality: Stroke Does the patient have a stroke diagnosis?: No Physical Exam Vital Signs: Vital Signs: Last Vital Signs Temp 97.4 F 01/12/23 07:56 Pulse 72 01/12/23 07:56 Resp 18 01/12/23 07:56 BP 137/76 01/12/23 07:56 Pulse Ox 95 01/12/23 07:56 O2 Del Method 01/12/23 07:56 O2 Flow Rate 2 01/11/23 08:00 BMI result Body Mass Index 20.9 Const: General: comfortable, no acute distress and alert Orientation/consciousness: patient oriented x3 GI: Inspection: No distended and Yes incision (clean) Palpation (GI): Soft to palpation, Tenderness to palpation present (GI) (very mild incisional), no guarding and not rigid Skin: General skin exam: no rashes or lesions noted Neuro: General: patient oriented x3 DS: Data Data Completed and Pending Completed studies during hospitalization [Text1]: Procedures Resection of Right Large Intestine, Percutaneous Endoscopic Approach (01/09/23) Pending studies at discharge: Pending at discharge 01/09/23 10:47 Surgical [PTH] Routine Discharge Plan Discharge Anticipated Discharge Date/Time: 01/12/23 09:31 Patient Disposition: Home, Self-Care Discharge Diagnosis: right colon polyp Referrals: Ty Newberry MD [Primary Care Provider] - 1 Week Bryan Nails MD [Physician] - 1 Week Discharge Medications: New oxycodone-acetaminophen [Percocet] 5-325 mg tablet 1 tab PO Q4-6H PRN (Reason: pain) Qty: 20 0RF Rx Instructions: Partial Fill upon patient request. ibuprofen 600 mg tablet 600 mg PO Q6H PRN (Reason: pain) Qty: 30 0RF Discontinued neomycin 500 mg tablet 1 g PO TID Qty: 6 0RF Rx Instructions: administer at 1 PM, 2 PM, and 11 PM the day prior to surgery erythromycin 500 mg tablet 1 g PO .COMPLEX Qty: 6 0RF Rx Instructions: administer at 1 PM, 2 PM, and 11 PM the day prior to surgery Discharge Orders: Discharge Order (Routine); Ordered 01/12/23 Ordered By: Ty Phillips Diet: Advance to usual diet Activity on Discharge: No heavy lifting Stand Alone Forms: Patient Portal Discharge page Activity Restrictions/Additional Instructions: If the incision area is tender, you may apply an ice pack for short intervals (No more than 20 minutes on, followed by at least 20 minutes off). Do not apply heat. Do not use creams, lotions, or topical antibiotics unless instructed to do so by your surgeon. These can cause infection or allergic reaction. OK to shower No lifting more than 20 lbs No strenuous activities Call the office for follow-up in 2 weeks - with Dr. Phillips Call Your Doctor If: -Your temperature exceeds 101.5? F -You experience excessive pain or swelling -You have an unexpected reaction to medication -You have excessive bleeding -You experience continued vomiting/nausea -Your incision begins to separate -Your incision shows signs of infection such as increased redness, swelling, excessive pain, drainage (light blood or clear fluid is normal) or heat Care Plan Goals: pain management await path Health Concerns: control pain Plan of Treatment: oral pain meds Assessment: doing well Discharge Date/Time: 01/12/23 15:00
== END 2023-01-12 15:00 | disposition home or self-care (01) | DRG 329 ==
LOC: HO.SSSA 07:09 → HO.S3 13:18
PROVIDERS: Anesthesiology; Admitting Provider Surgery; PCP Internal Medicine; Visit Provider Surgery
PROC: 0DTE0ZZ Resection of Large Intestine, Open Approach (ICD-10-PCS; principal; 2023-01-09 08:40)
DX: D12.0 Benign neoplasm of cecum (principal); U07.1 COVID-19; Z86.16 Personal history of COVID-19; Z87.891 Personal history of nicotine dependence
CPT/HCPCS: 0241U; 36415; 80048; 80053; 85025; 86769; 86850; 86900; 86901; 88307; 93005; 97161; C1758; J0131; J1170; J1643; J2250; J2405; J2550; J2795; J3010

== ENCOUNTER → 2023-01-18 10:14 | Outpatient (BNVA) | payer MEDICARE, OTHER, SELFPAY | PROVIDERS: PCP Internal Medicine; Visit Provider Surgery | DX: Z13.89 Encounter for screening for other disorder (principal) | CPT/HCPCS: 99212 ==

== ENCOUNTER → 2023-02-14 14:39 | Outpatient (BNVA) | payer MEDICARE, OTHER, SELFPAY | PROVIDERS: PCP Internal Medicine; Visit Provider Surgery | DX: Z48.815 Encounter for surgical aftercare following surgery on the digestive system (principal); Z90.49 Acquired absence of other specified parts of digestive tract | CPT/HCPCS: 99212 ==

== ENCOUNTER 2023-04-19 14:35 | Outpatient (REF) | payer MEDICARE, OTHER, SELFPAY ==
--- NOTE | ~2023-04-19 | MM_ITS ---
EXAMINATION: MM SCREENING DIGITAL BREAST TOMOSYNTHESIS, BILATERAL CLINICAL INFORMATION: Screening. Asymptomatic. The lifetime risk of breast cancer based on the Tyrer-Cuzick Model is 5%. COMPARISON: Mammography: 03/22/2022, 03/13/2022, 02/16/2013 TECHNIQUE: Digital breast tomosynthesis is performed in both the craniocaudal and mediolateral oblique views along with computer-aided detection (CAD). Synthesized 2D images are generated from the tomosynthesis. FINDINGS: There are scattered areas of fibroglandular density (ACR BI-RADS breast composition Category b). There are no significant masses, abnormal calcifications, or other abnormalities. The axilla are unremarkable. There is incidental dermal lesion again noted overlying the posterior lower inner right breast. MM/MM tomosynthesis screening BI IMPRESSION: No mammographic evidence of malignancy. ASSESSMENT: BI-RADS 2: Benign RECOMMENDATION: Routine annual mammography screening. This patient's information was entered into a reminder system with a target due date for their next mammogram.
== END 2023-04-19 14:36 | disposition home or self-care (01) ==
LOC: HO.MAMMO 14:35
PROVIDERS: PCP Internal Medicine; Visit Provider Internal Medicine
DX: Z12.31 Encounter for screening mammogram for malignant neoplasm of breast (principal)
CPT/HCPCS: 77063; 77067